=== PATIENT | male | born 1995 | race African-American/Black ===

== ENCOUNTER 2016-09-12 20:15 | Emergency (ER) | payer OTHER ==
[~2016-09-12] VITALS: Ht 170.2 cm; Wt 72.6 kg
[~2016-09-12 20:15] MED LIST: FLONASE 0.05%50 MCG NASAL; IBUPROFEN 600600 M1 PO; LOMOTIL TABLET1 EACH PO; NOHOMEMEDICATIONS; ZPAK PO
[2016-09-12] MEDS ORDERED: NAPROSYN500 MG PO (20:53)
[2016-09-12 20:56] VITALS: BP 108/76
== END 2016-09-12 21:05 | disposition home or self-care (01) ==
LOC: ER 20:15
DX: S93.601A Unspecified sprain of right foot, initial encounter (principal); W22.8XXA Striking against or struck by other objects, initial encounter; Y93.89 Activity, other specified; Y92.89 Other specified places as the place of occurrence of the external cause; Y99.8 Other external cause status

== ENCOUNTER 2019-03-14 18:51 | Emergency (ER) | payer OTHER ==
[~2019-03-14] VITALS: Ht 152.4 cm; Wt 70.8 kg
[~2019-03-14 18:51] MED LIST changes: +NAPROSYN500 MG PO
[2019-03-14] MEDS ORDERED: NEOMYC-POLYM-DEX5 ML OPHTHALMIC (20:08)
[2019-03-14 20:36] VITALS: BP 112/76
== END 2019-03-14 20:37 | disposition home or self-care (01) ==
LOC: ER 18:51
DX: H10.9 Unspecified conjunctivitis (principal); J06.9 Acute upper respiratory infection, unspecified; F84.0 Autistic disorder